=== PATIENT | female | born 1990 | race Hispanic/Latino ===

== ENCOUNTER 2017-11-10 11:49 | Observation (INO) | payer MEDICAID ==
[~2017-11-10] VITALS: Ht 160 cm; Wt 96.2 kg
== END 2017-11-10 12:48 | disposition home or self-care (01) ==
LOC: LDH 11:49
PROVIDERS: ADMIT Specialist; ATTEND Specialist
DX: Z34.93 Encounter for supervision of normal pregnancy, unspecified, third trimester (principal); Z3A.33 33 weeks gestation of pregnancy
CPT/HCPCS: 59025; 76819; G0378 ×2

== ENCOUNTER 2017-11-22 17:16 | Observation (INO) | payer MEDICAID ==
[2017-11-22 18:01] LABS: APPEARANCE,URINE Cloudy (CLEAR); BILIRUBIN,URINE Negative (NEGATIVE); COLOR,URINE Yellow (YELLOW); GLUCOSE, URINE (UA) 250 mg/dL (NEGATIVE); KETONES,URINE Trace mg/dL (NEGATIVE); LEUKOCYTE ESTERASE ,URINE Moderate (NEGATIVE); NITRATE,URINE Positive (NEGATIVE); OCCULT BLOOD,URINE Negative (NEGATIVE); PH,URINE 6.5 (5.0-8.0); PROTEIN,URINE Trace (NEGATIVE)
[2017-11-22 18:17] LABS: BACTERIA,URINE Few /HPF (None Seen); RBC,URINE 0-1 /HPF (0-1)
[2017-11-22 18:18] LABS: MUCUS,URINE Few LPF (None Seen); SQUAMOUS EPITHELIAL CELL,UR Few /LPF (0-2)
[2017-11-22] MEDS ORDERED: LACTATED RINGERS 1000ML IV SCH (18:30)
[2017-11-22] MEDS ORDERED: ACETAMINOPHEN-CODEINE 300/30MG TAB PO ONE ×2 (18:30→18:45)
[2017-11-22] MEDS ORDERED: CEFTRIAXONE 1GM/D5W 50ML 50 ML IV SCH (18:30)
== END 2017-11-22 19:30 | disposition home or self-care (01) ==
LOC: EDH 17:16 → LDH 17:35
PROVIDERS: ADMIT Specialist; ATTEND Specialist
DX: O26.893 Other specified pregnancy related conditions, third trimester (principal); O36.8130 Decreased fetal movements, third trimester, not applicable or unspecified; R51 Headache; Z3A.35 35 weeks gestation of pregnancy
CPT/HCPCS: 81001; 96365; 99285; G0378 ×2; J0696; 96360; 96361

== ENCOUNTER 2017-12-11 09:30 | Inpatient (IN) | payer MEDICAID ==
[~2017-12-11] VITALS: Ht 167.6 cm; Wt 97.5 kg
[2017-12-13 17:57] LABS: HEMATOCRIT 34.3 % (36-48); MEAN CORPUSCULAR HEMOGLOBIN 27.7 pg (27.0-33.0); MEAN CORPUSCULAR HGB CONC 34.5 g/dL (32.0-36.0); MEAN CORPUSCULAR VOLUME 80.3 fL (79-99); PLATELET COUNT (AUTO) 256 K/uL (130-400); RED BLOOD CELL COUNT(AUTO) 4.26 MIL/uL (4.00-5.50); RED CELL DISTRIBUTION WIDTH 15.2 % (11.0-15.5); WHITE BLOOD COUNT (AUTO) 8.9 K/uL (4.8-10.8)
[2017-12-14] MEDS ORDERED: LACTATED RINGERS 1000ML 1,000 ML IV SCH (06:30)
[2017-12-14] MEDS ORDERED: CEFAZOLIN SODIUM 1 GM VIAL IVP PRN (06:30)
[2017-12-14 06:36] VITALS: BP 120/72
[2017-12-14] MEDS ORDERED: PREN1TAB89 PO (06:58)
[2017-12-14] MEDS ORDERED: OXYTOCIN 10 USP UNITS/ML ONE ×2 (08:08→10:47)
[2017-12-14] MEDS ORDERED: CEFAZOLIN SODIUM 1 GM VIAL ONE (08:08)
[2017-12-14] MEDS ORDERED: DURAMORPH PF1 MG/ML 10ML AMP IV ONE (08:11)
[2017-12-14] MEDS ORDERED: CEFAZOLIN SODIUM 1 GM VIAL IVP ONE (08:25)
[2017-12-14] MEDS ORDERED: EPHEDRINE-NS PF 50MG/5ML SYRINGE IV ONE ×2 (08:26→09:40)
[2017-12-14] MEDS ORDERED: MIDAZOLAM HCL 1 MG/ML 2ML VIAL ONE (09:00)
[2017-12-14] MEDS ORDERED: EPHEDRINE-NS PF 50MG/5ML SYRINGE IV PRN (10:15)
[2017-12-14] MEDS ORDERED: OXYTOCIN-LR 20 UNITS/1000 ML 1,000 ML IV PRN (10:31)
[2017-12-14] MEDS ORDERED: MEPERIDINE-PF 75 MG/ML SYG IM PRN (10:45)
[2017-12-14] MEDS ORDERED: PROMETHAZINE HCL 25 MG/ML 1ML AMPULE IM PRN ×2 (10:45→11:45)
[2017-12-14] MEDS ORDERED: SODIUM CHLORIDE 0.9% 10 ML VIAL IVP PRN (10:45)
[2017-12-14] MEDS ORDERED: LACTATED RINGERS 1000ML 1,000 ML IV ONE (10:47)
[2017-12-14 11:20] VITALS: BP 101/61
[2017-12-14] MEDS ORDERED: EPHEDRINE SULFATE 50 MG/ML AMPULE IVP PRN (11:45)
[2017-12-14] MEDS ORDERED: HYDROCODONE/ACETAMINOPHEN 5/325 MG TAB PO PRN ×2 (11:45)
[2017-12-14] MEDS ORDERED: ONDANSETRON HCL 4 MG/2 ML VIAL IVP PRN ×2 (11:45)
[2017-12-14] MEDS ORDERED: DiphenhydrAMINE HCL 50 MG/ML VIAL IVP PRN (11:45)
[2017-12-14] MEDS ORDERED: NALOXONE HCL 0.4 MG/1 ML ML IVP PRN ×2 (11:45)
[2017-12-14] MEDS ORDERED: ONDANSETRON HCL 4 MG/2 ML 8 MG in SODIUM CHLORIDE 0.9% 50 ML IVP NR (11:45)
[2017-12-14] MEDS ORDERED: METOCLOPRAMIDE 10 MG/2 ML VIAL IVP PRN (11:45)
[2017-12-14] MEDS ORDERED: MORPHINE SULFATE 2 MG/ML 1ML SYG IVP PRN (11:45)
[2017-12-14 15:50] VITALS: BP 95/54
[2017-12-14] MEDS ORDERED: CEFAZOLIN 2GM / 50 ML 50 ML IV SCH (17:00)
[2017-12-14] MEDS: CEFAZOLIN SODIUM 1 GM VIAL IVP SCH (17:14)
[2017-12-14] MEDS: DEXTROSE 5 %-0.45 % NACL 1,000 ML IV PRN (18:32)
[2017-12-14 19:37] VITALS: BP 108/62
[2017-12-14 23:11] VITALS: BP 94/61
[2017-12-15] MEDS: CEFAZOLIN SODIUM 1 GM VIAL IVP SCH (00:54)
[2017-12-15] MEDS: DEXTROSE 5 %-0.45 % NACL 1,000 ML IV PRN ×2 (01:08→08:32)
[2017-12-15 03:03] VITALS: BP 100/57
[2017-12-15 06:40] LABS: MEAN CORPUSCULAR HEMOGLOBIN 27.8 pg (27.0-33.0); MEAN CORPUSCULAR HGB CONC 34.4 g/dL (32.0-36.0); MEAN CORPUSCULAR VOLUME 80.8 fL (79-99); PLATELET COUNT (AUTO) 182 K/uL (130-400); RED CELL DISTRIBUTION WIDTH 14.9 % (11.0-15.5); WHITE BLOOD COUNT (AUTO) 8.6 K/uL (4.8-10.8)
[2017-12-15 08:08] VITALS: BP 112/57
[2017-12-15 08:24] LABS: HEPATITIS Bs ANTIGEN SCREEN P Negative (Negative)
[2017-12-15] MEDS ORDERED: ACETAMINOPHEN-CODEINE 300/30MG TAB PO PRN (08:45)
[2017-12-15] MEDS ORDERED: LANOLIN 30GM OINTMENT TP PRN (08:45)
[2017-12-15] MEDS ORDERED: BISACODYL 10 MG SUPP.RECT RC PRN (08:45)
[2017-12-15] MEDS ORDERED: DIPHENHYDRAMINE HCL 25 MG CAPSULE PO PRN (08:45)
[2017-12-15] MEDS: DOCUSATE SODIUM 100 MG CAP PO SCH ×2 (09:01→20:56)
[2017-12-15] MEDS: IBUPROFEN 800 MG TAB PO SCH ×2 (09:01→16:26)
[2017-12-15 11:35] VITALS: BP 106/56
[2017-12-15 15:34] VITALS: BP 109/60
[2017-12-15 19:53] VITALS: BP 106/53
[2017-12-15 23:07] VITALS: BP 110/74
[2017-12-16] MEDS: IBUPROFEN 800 MG TAB PO SCH ×3 (00:12→16:59)
[2017-12-16 03:16] VITALS: BP 102/55
[2017-12-16 07:04] LABS: MEAN CORPUSCULAR HEMOGLOBIN 28.4 pg (27.0-33.0); MEAN CORPUSCULAR HGB CONC 34.7 g/dL (32.0-36.0); PLATELET COUNT (AUTO) 200 K/uL (130-400); RED BLOOD CELL COUNT(AUTO) 2.47 MIL/uL (4.00-5.50); RED CELL DISTRIBUTION WIDTH 15.5 % (11.0-15.5); WHITE BLOOD COUNT (AUTO) 9.1 K/uL (4.8-10.8)
[2017-12-16 07:08] LABS: HEMATOCRIT 20.2 % (36-48)
[2017-12-16 08:17] VITALS: BP 92/58
[2017-12-16] MEDS: DOCUSATE SODIUM 100 MG CAP PO SCH (09:17)
[2017-12-16 11:58] VITALS: BP 111/64
[2017-12-16 16:52] VITALS: BP 105/68
== END 2017-12-16 17:15 | disposition home or self-care (01) | DRG 540 ==
LOC: LDH 12-14 06:21 → WSH 12-14 11:21
PROVIDERS: ADMIT Specialist; ATTEND Specialist
PROC: 10D00Z1 Extraction of Products of Conception, Low, Open Approach (ICD-10-PCS; principal; 2017-12-14 08:00)
DX: O69.81X0 Labor and delivery complicated by cord around neck, without compression, not applicable or unspecified (principal); O24.92 Unspecified diabetes mellitus in childbirth; O34.211 Maternal care for low transverse scar from previous cesarean delivery; O90.81 Anemia of the puerperium; D62 Acute posthemorrhagic anemia; Z37.0 Single live birth; Z3A.38 38 weeks gestation of pregnancy
CPT/HCPCS: 36415; 59510; 82947; 85027; 86592; 86850; 86900; 86901; 87340; A4218; A4344; A4606; J0690; J2250; J2274; J2405; J2590; J3490; J7120

== ENCOUNTER 2020-08-06 12:00 | Day surgery (SDC) | payer MEDICAID ==
[2020-08-01 12:12] LABS: BASOPHILS % (AUTO) 0.4 % (0.0-5.0); EOSINOPHILS % (AUTO) 2.6 % (0.0-8.0); HEMATOCRIT 40.6 % (36-48); LYMPHOCYTES % (AUTO) 25.3 % (21.0-51.0); MEAN CORPUSCULAR HEMOGLOBIN 28.2 pg (27.0-33.0); MEAN CORPUSCULAR HGB CONC 32.8 g/dL (32.0-36.0); MONOCYTES % (AUTO) 5.3 % (3.0-13.0); NEUTROPHILS % (AUTO) 66.3 % (40.0-77.0); PLATELET COUNT (AUTO) 316 K/uL (130-400); RED BLOOD CELL COUNT(AUTO) 4.72 MIL/uL (4.00-5.50)
[2020-08-01 13:39] VITALS: BP 114/74
[~2020-08-06] VITALS: Ht 162.6 cm; Wt 85.7 kg
[2020-08-06] VITALS (19 sets, daily range): BP systolic 110–128; BP diastolic 65–74
[2020-08-06] MEDS: CEFAZOLIN SODIUM 1 GM VIAL IVP SCH ×2 (06:00→14:05)
[~2020-08-06 12:00] MED LIST: AMPH30TA3 PO; ZOLP10TA2 PO
[2020-08-06] MEDS ORDERED: DEXAMETHASONE SOD PHOSPHATE 10MG/ML 1ML VIAL ONE (13:10)
[2020-08-06] MEDS ORDERED: SUCCINYLCHOLINE CHLORIDE 20 MG/ML 10 ML VIAL ONE (13:10)
[2020-08-06] MEDS ORDERED: LIDOCAINE PF 2% 5ML ABBOJECT ONE (13:10)
[2020-08-06] MEDS ORDERED: MIDAZOLAM HCL 1 MG/ML 2ML VIAL ONE (13:11)
[2020-08-06] MEDS ORDERED: NEOSTIGMINE 5MG/5ML SYR IV ONE (13:11)
[2020-08-06] MEDS ORDERED: ROCURONIUM 10MG/1ML SYR 10 MG/ML ML ONE (13:11)
[2020-08-06] MEDS ORDERED: GLYCOPYRROLATE 1 MG/5 ML SYRINGE ONE (13:11)
[2020-08-06] MEDS ORDERED: PROPOFOL 10 MG/ML 20ML VIAL IV ONE (13:11)
[2020-08-06] MEDS ORDERED: ONDANSETRON HCL 4 MG/2 ML VIAL ONE (13:11)
[2020-08-06] MEDS ORDERED: FENTANYL CITRATE PF 50 MCG/1 ML 2ML VIAL ONE (13:13)
[2020-08-06] MEDS: LACTATED RINGERS 1000ML 1,000 ML IV SCH ×2 (13:29→16:12)
[2020-08-06] MEDS ORDERED: NEOMY SULF/BACITRAC ZN/POLY OINT 30GM TUBE TP ONE (14:51)
--- NOTE | 2020-08-06 16:15 | NUR ---
PATIENT ARRIVED TO DAY PATIENT VIA STRETCHER BY СВЕТЛАНА BROOKS RN. PATIENT [id number], DENIES ANY PAIN, DRESSING TO LOWER ABDOMEN IS DRY/INTACT WITH MEDIPORE TAPE AND TELFA DRESSING. VITAL SIGNS STABLE.
--- NOTE | 2020-08-06 16:25 | NUR ---
RE: DRESSING SPOKE WITH DR CASEY TO FIND OUT WHEN PATIENT CAN REMOVE DRESSING. PER DR CASEY, PATIENT CAN REMOVE DRESSING IN TWO DAY (08/08/20).
--- NOTE | 2020-08-06 17:00 | NUR ---
DISCHARGE INSTRUCTIONS PROVIDED TO ALEJANDRA (SIGNIFICANT OTHER) VIA TELEPHONE AND PATIENT. FOLLOW UP APPOINTMENT PROVIDED AND PATIENT INSTRUCTED TO DROP OFF PRESCRIPTION AT PHARMACY OF CHOICE. PATIENT INSTRUCTED TO REMOVE DRESSING IN TWO DAYS. ALL QUESTIONS/CONCERNS ADDRESSED.
--- NOTE | 2020-08-06 17:25 | NUR ---
PATIENT DISCHARGED FROM FACILITY VIA WHEELCHAIR AND ASSISTED INTO PRIVATE VEHICLE DRIVEN BY FAMILY
== END 2020-08-06 17:25 | disposition home or self-care (01) ==
LOC: DAH 12:00
PROVIDERS: ATTEND Specialist
DX: L92.3 Foreign body granuloma of the skin and subcutaneous tissue (principal); L72.0 Epidermal cyst; Z20.828 Contact with and (suspected) exposure to other viral communicable diseases; E11.9 Type 2 diabetes mellitus without complications; Z98.891 History of uterine scar from previous surgery; Z98.890 Other specified postprocedural states; Z79.899 Other long term (current) drug therapy
CPT/HCPCS: 11400; 36415; 84703; 85025; 87070; 87076; 87077; 87186; 87205; 88304; A4215; A4221; A4222; A4223; A4344; A4452; A4649; A4663; A6260; C9803; J0330; J0690; J1100; J2001; J2250; J2405; J2704; J2710; J3010; J3490; J7030; J7120; U0003

== ENCOUNTER 2022-11-28 06:33 | Day surgery (SDC) | payer BC, MEDICAID ==
[2022-11-27 16:38] LABS: BASOPHILS % (AUTO) 0.6 % (0.0-5.0); EOSINOPHILS % (AUTO) 2.6 % (0.0-8.0); LYMPHOCYTES % (AUTO) 29.4 % (21.0-51.0); MEAN CORPUSCULAR HEMOGLOBIN 29.3 pg (27.0-33.0); MEAN CORPUSCULAR HGB CONC 33.5 g/dL (32.0-36.0); MEAN CORPUSCULAR VOLUME 87.5 fL (79-99); MONOCYTES % (AUTO) 6.9 % (3.0-13.0); NEUTROPHILS % (AUTO) 60.2 % (40.0-77.0); PLATELET COUNT (AUTO) 267 K/uL (130-400); RED BLOOD CELL COUNT(AUTO) 4.23 MIL/uL (4.00-5.50); RED CELL DISTRIBUTION WIDTH 12.3 % (11.0-15.5); WHITE BLOOD COUNT (AUTO) 7.2 K/uL (4.8-10.8)
[2022-11-28] VITALS (13 sets, daily range): BP systolic 92–134; BP diastolic 47–75
[~2022-11-28 06:33] MED LIST changes: +CEFAZOLIN SODIUM 2 GM VIAL ONE
[2022-11-28] MEDS ORDERED: PNV1TABL17 PO (07:01)
[2022-11-28] MEDS ORDERED: MIDAZOLAM HCL 1 MG/ML 2ML VIAL ONE (07:42)
[2022-11-28] MEDS ORDERED: PROPOFOL 10 MG/ML 20ML VIAL IV ONE (07:42)
[2022-11-28] MEDS ORDERED: LIDOCAINE PF 100MG/5ML (2%) SYRINGE 5ML ONE (07:42)
[2022-11-28] MEDS ORDERED: FENTANYL CITRATE PF 50 MCG/1 ML 2ML VIAL ONE (07:43)
[2022-11-28] MEDS ORDERED: LACTATED RINGERS 1000ML 1,000 ML IV SCH (08:00)
[2022-11-28] MEDS ORDERED: CEFAZOLIN SODIUM 2 GM VIAL IVPB PRN (08:00)
[2022-11-28] MEDS ORDERED: CEFAZOLIN SODIUM 2 GM VIAL IV ONE (08:00)
[2022-11-28] MEDS ORDERED: CALDOLOR 800MG+NS 250ML 250 ML IV ONE (08:12)
[2022-11-28] MEDS ORDERED: DEXAMETHASONE SOD PHOSPHATE 10MG/ML 1ML VIAL ONE (08:24)
[2022-11-28] MEDS ORDERED: ONDANSETRON 4MG INJ ONE (08:25)
[2022-11-28] MEDS ORDERED: OXYTOCIN 10 USP UNITS/ML ONE (08:25)
== END 2022-11-28 09:30 | disposition home or self-care (01) ==
LOC: DAH 06:33
PROVIDERS: ATTEND Obstetrics & Gynecology
DX: O02.1 Missed abortion (principal); Z20.822 Contact with and (suspected) exposure to COVID-19; O34.211 Maternal care for low transverse scar from previous cesarean delivery
CPT/HCPCS: 85025; 86850; 86900; 86901; 87426; 36415; 59820; 88305; A4663; A4649; J7030; A4351 ×2; J7120; J3010; J1100; J2001; J2250; J2590; J2704; J2405; J1741; J0690 ×2; A4215; A4223; A4222; A4221; A4600

== ENCOUNTER 2023-08-02 20:03 | Emergency (ER) | payer MEDICAID ==
[~2023-08-02] VITALS: Ht 154.9 cm; Wt 65.8 kg
[~2023-08-02 20:03] MED LIST changes: -AMPH30TA3 PO; -CEFAZOLIN SODIUM 2 GM VIAL ONE; +PNV1TABL17 PO; -ZOLP10TA2 PO
[2023-08-02] MEDS ORDERED: LACTATED RINGERS 1000ML 1,000 ML IV STA (20:20)
[2023-08-02] MEDS ORDERED: ONDANSETRON 4MG INJ ONE (20:24)
[2023-08-02] MEDS ORDERED: MORPHINE 4 MG SYG ONE (20:24)
[2023-08-02] MEDS ORDERED: 0.9%NACL 1000ML 1,000 ML IV ONE (20:30)
[2023-08-02 20:44] LABS: BASOPHILS # (AUTO) 0.05 K/uL (0.00-0.20); BASOPHILS % (AUTO) 0.4 % (0.0-5.0); EOSINOPHILS # (AUTO) 0.18 K/uL (0.00-0.70); EOSINOPHILS % (AUTO) 1.6 % (0.0-8.0); HEMATOCRIT 30.7 % (36-48); IMMATURE GRANULOCYTE ABSOLUTE 0.04 K/uL (0-1); LYMPHOCYTES # (AUTO) 1.4 K/uL (1.0-4.8); LYMPHOCYTES % (AUTO) 12.5 % (21.0-51.0); MEAN CORPUSCULAR HEMOGLOBIN 29.6 pg (27.0-33.0); MEAN CORPUSCULAR HGB CONC 34.5 g/dL (32.0-36.0); MEAN CORPUSCULAR VOLUME 85.8 fL (79-99); MONOCYTES # (AUTO) 0.4 K/uL (0.1-1.0); MONOCYTES % (AUTO) 3.8 % (3.0-13.0); NEUTROPHILS # (AUTO) 9.3 K/uL (1.8-7.7); NEUTROPHILS % (AUTO) 81.3 % (40.0-77.0); PLATELET COUNT (AUTO) 236 K/uL (130-400); RED BLOOD CELL COUNT(AUTO) 3.58 MIL/uL (4.00-5.50); RED CELL DISTRIBUTION WIDTH 13.1 % (11.0-15.5); WHITE BLOOD COUNT (AUTO) 11.4 K/uL (4.8-10.8)
[2023-08-02 20:57] LABS: CREATININE 0.7 mg/dL (0.5-1.5); POTASSIUM 3.4 mmol/L (3.5-5.1)
[2023-08-02] MEDS ORDERED: MORPHINE 4 MG SYG IVP ONE (21:00)
[2023-08-02] MEDS ORDERED: ONDANSETRON 4MG INJ IVP ONE (21:00)
[2023-08-02 21:02] LABS: ALBUMIN 3.4 g/dL (3.5-5.0); BILIRUBIN,TOTAL 0.3 mg/dL (0.2-1.0); TOTAL PROTEIN, SERUM 6.5 g/dL (6.0-8.3)
[2023-08-02] MEDS ORDERED: MORPHINE 2 MG SYG ONE (21:49)
[2023-08-02] MEDS ORDERED: MORPHINE 2 MG SYG IVP ONE (22:00)
[2023-08-02] MEDS ORDERED: METHYLERGONOVINE MALEATE 0.2 MG/1 ML ML IM SCH (23:00)
[2023-08-02 23:44] VITALS: BP 122/72; PULSE 71; RESP 15; O2SAT 100
== END 2023-08-02 23:46 | disposition home or self-care (01) ==
LOC: EDH 20:03
DX: O03.9 Complete or unspecified spontaneous abortion without complication (principal); O26.891 Other specified pregnancy related conditions, first trimester; R10.30 Lower abdominal pain, unspecified
CPT/HCPCS: 99291; 96374; 96361; 76801; 96375; 80053; 84703; 84702; 85025; 86850; 86900; 86901; 36415; 96376; 96372; J7120; J2270 ×2; J7030; J2405; J2210